=== PATIENT | male | born 1990 | race Hispanic/Latino ===

== ENCOUNTER 2018-03-19 17:47 | Emergency (ER) | payer OTHER ==
[2018-03-19] MEDS ORDERED: IBUPROFEN 600 MG TABLET ONE (18:02)
[2018-03-19] MEDS ORDERED: SODIUM CHLORIDE 0.9% 1000ML 1,000 ML IV ONE (18:33)
[2018-03-19 18:37] LABS: BASOPHILS % (AUTO) 0.3 % (0.0-5.0); HEMATOCRIT 46.3 % (42-54); MEAN CORPUSCULAR HEMOGLOBIN 31.6 pg (27.0-33.0); MEAN CORPUSCULAR HGB CONC 34.9 g/dL (32.0-36.0); MEAN CORPUSCULAR VOLUME 90.5 fL (79-99); MONOCYTES % (AUTO) 15.7 % (3.0-13.0); NUCLEATED RED BLOOD CELLS 0.1 % (0.0-0.19); PLATELET COUNT (AUTO) 120 K/uL (130-400); RED BLOOD CELL COUNT(AUTO) 5.11 MIL/uL (4.50-6.20); RED CELL DISTRIBUTION WIDTH 12.1 % (11.0-15.5); WHITE BLOOD COUNT (AUTO) 3.9 K/uL (4.8-10.8)
[2018-03-19 18:40] LABS: APPEARANCE,URINE Clear (CLEAR); BILIRUBIN,URINE Negative (NEGATIVE); COLOR,URINE Yellow (YELLOW); GLUCOSE, URINE (UA) Negative (NEGATIVE); KETONES,URINE Trace mg/dL (NEGATIVE); LEUKOCYTE ESTERASE ,URINE Negative (NEGATIVE); NITRATE,URINE Negative (NEGATIVE); OCCULT BLOOD,URINE Negative (NEGATIVE); PROTEIN,URINE Negative (NEGATIVE); UROBILINOGEN,URINE 0.2 mg/dL (0.2-1.0)
[2018-03-19 18:46] LABS: CREATININE 1.2 mg/dL (0.5-1.5)
[2018-03-19 18:50] LABS: RAPID GROUP A STREP NEGATIVE (NEGATIVE)
[2018-03-19 18:51] LABS: ALBUMIN 3.9 g/dL (3.5-5.0); BILIRUBIN,TOTAL 0.4 mg/dL (0.2-1.0); TOTAL PROTEIN, SERUM 7.5 g/dL (6.0-8.3)
[2018-03-19] MEDS ORDERED: CEFTRIAXONE SODIUM 1 GM ONE (19:05)
[2018-03-19] MEDS ORDERED: SODIUM CHLORIDE 0.9% 50 ML IV ONE (19:06)
[2018-03-19] MEDS ORDERED: OSELTAMIVIR PHOSPHATE 75 MG CAP ONE (19:06)
== END 2018-03-19 20:56 | disposition home or self-care (01) ==
LOC: EDH 17:47
DX: J10.1 Influenza due to other identified influenza virus with other respiratory manifestations (principal)
CPT/HCPCS: 36415; 71046; 80053; 81003; 83605; 85025; 87804 ×2; 87880; 96374; 99284; J0696; J7030

== ENCOUNTER 2023-04-14 14:36 | Emergency (ER) | payer BC, OTHER ==
[~2023-04-14] VITALS: Ht 165.1 cm; Wt 68.0 kg
[2023-04-14 19:49] LABS: APPEARANCE,URINE CLEAR (CLEAR); BILIRUBIN,URINE NEGATIVE (NEGATIVE); COLOR,URINE LIGHT-YELLOW (YELLOW); GLUCOSE, URINE (UA) NEGATIVE (NEGATIVE); KETONES,URINE NEGATIVE (NEGATIVE); LEUKOCYTE ESTERASE ,URINE NEGATIVE Leu/uL (NEGATIVE); NITRATE,URINE NEGATIVE (NEGATIVE); OCCULT BLOOD,URINE NEGATIVE (NEGATIVE); PH,URINE 6.5 (5.0-8.0); PROTEIN,URINE NEGATIVE (NEGATIVE); UROBILINOGEN,URINE 0.2 mg/dL (0.2-1.0)
[2023-04-14 19:50] LABS: ADD UA MICROSCOPIC NO
[2023-04-14] MEDS ORDERED: NAPR-1180 PO (20:19)
[2023-04-14 20:48] VITALS: BP 115/62; PULSE 78; RESP 14; O2SAT 97
== END 2023-04-14 20:55 | disposition home or self-care (01) ==
LOC: EDH 14:36
DX: S39.011A Strain of muscle, fascia and tendon of abdomen, initial encounter (principal); N50.89 Other specified disorders of the male genital organs; X50.0XXA Overexertion from strenuous movement or load, initial encounter; Y93.89 Activity, other specified; Y92.89 Other specified places as the place of occurrence of the external cause; Y99.8 Other external cause status
CPT/HCPCS: 76870; 81003